=== PATIENT | male | born 1995 | race Two or more races ===

== ENCOUNTER 2016-11-04 23:53 | Inpatient (IN) | payer OTHER ==
[~2016-11-04] VITALS: Ht 266.7 cm; Wt 99.5 kg
[2016-11-05 00:34] LABS: HEMATOCRIT 45.8 % (38.0-50.0); MCH 31.3 PG (29.0-34.0); MCHC 35.8 G/DL (30.0-36.0); MCV 87.4 FL (86-99); MEAN PLAT.VOLUME 10.9 uM^3 (9.0-12.4); PLATELET COUNT 173 K/uL (156-360); RBC DIS.WIDTH-CV 13.4 % (11.8-14.6); RBC DIS.WIDTH-SD 42.9 % (39-53); RED BLOOD COUNT 5.24 M/uL (4.00-5.50); WHITE BLOOD COUNT 9.6 K/uL (4.1-10.2)
[2016-11-05 00:45] LABS: CHLORIDE 99 mEq/L (99-109); POTASSIUM 3.1 mEq/L (3.7-5.4); SODIUM 137 mEq/L (136-147)
[2016-11-05 00:48] LABS: GLUCOSE 101 mg/dL (70-99)
[2016-11-05 00:49] LABS: ANION GAP 21 MEQ/L (2-14)
[2016-11-05 00:50] LABS: TOTAL BILIRUBIN 1.3 mg/dL (0.0-1.0)
[2016-11-05 00:51] LABS: ALKALINE PHOSPHATASE 82 IU/L (3-129); SERUM ETHYL ALCOHOL < 10 mg/dL
[2016-11-05 00:52] LABS: GFR ESTIMATE (CALCULATED) > 59 mL/min/
[2016-11-05 00:53] LABS: UREA NITROGEN (BUN) 7 mg/dL (9-23)
[2016-11-05 01:58] LABS: AMPHETAMINE NEGATIVE (500 ng/mL); BARBITURATES NEGATIVE (200 ng/mL); BENZODIAZEPINES NEGATIVE (150 ng/mL); COCAINE NEGATIVE (150 ng/mL); INTERNAL CONTROLS VALID? YES; METHADONE NEGATIVE (200 ng/mL); METHAMPHETAMINE NEGATIVE (500 ng/mL); OPIATES (MORPHINE) NEGATIVE (100 ng/mL); OXYCODONE NEGATIVE (100 ng/mL); PHENCYCLIDINE NEGATIVE (25 ng/mL); PROPOXYPHENE NEGATIVE (300 ng/mL); THC CANNABINOIDS NEGATIVE (50 ng/mL); TRICYCLIC ANTIDEPRESSANTS NEGATIVE (300 ng/mL)
[2016-11-05 08:15] VITALS: BP 143/94
[2016-11-05 08:33] LABS: MAGNESIUM 1.6 mg/dL (1.3-2.7)
[2016-11-05 10:54] LABS: HBSG INDEX 0.22; HPCA INDEX 0.08
[2016-11-05 10:56] LABS: ANTI-HEPATITIS A VIRUS (IGM) Nonreactive; HAV INDEX 0.16
[2016-11-05 10:57] LABS: ANTI-HEPATITIS B CORE (IGM) Nonreactive; HBC IgM INDEX 0.07
[2016-11-05 16:32] VITALS: BP 154/96
[2016-11-05 19:07] VITALS: BP 144/89
[2016-11-05 23:25] VITALS: BP 126/75
[2016-11-06 06:42] LABS: ALKALINE PHOSPHATASE 61 IU/L (3-129); ANION GAP 10 MEQ/L (2-14); CHLORIDE 101 MEQ/L (99-109); DIRECT BILIRUBIN 0.4 mg/dL (0.0-0.3); GFR ESTIMATE (CALCULATED) > 59 mL/min/; GLUCOSE 86 mg/dL (70-99); SAMPLE HEMOLYSIS CHECK 0; SAMPLE ICTERIC CHECK 0; SAMPLE LIPEMIA CHECK 0; SODIUM 137 MEQ/L (136-147); TOTAL BILIRUBIN 1.4 MG/DL (0.0-1.0); UREA NITROGEN (BUN) 3 mg/dL (9-23)
[2016-11-06 06:47] LABS: INTER. NORMALIZED RATIO 1.1; PROTHROMBIN TIME 10.7 (9.2-11.2)
[2016-11-06 06:50] LABS: POTASSIUM 3.9 MEQ/L (3.7-5.4)
[2016-11-06 07:22] VITALS: BP 133/78
[2016-11-06 07:42] LABS: FERRITIN 318 NG/ML (22-322)
[2016-11-06 11:18] VITALS: BP 144/88
[2016-11-06 16:03] VITALS: BP 122/66
[2016-11-06 19:49] VITALS: BP 135/80
[2016-11-07 00:06] VITALS: BP 145/73
[2016-11-07 00:07] VITALS: BP 139/84
[2016-11-07 03:34] VITALS: BP 119/64
[2016-11-07 06:57] VITALS: BP 133/57
[2016-11-07 08:35] LABS: ALKALINE PHOSPHATASE 64 IU/L (3-129); ANION GAP 9 MEQ/L (2-14); CHLORIDE 103 MEQ/L (99-109); GFR ESTIMATE (CALCULATED) > 59 mL/min/; GLUCOSE 90 mg/dL (70-99); POTASSIUM 3.8 MEQ/L (3.7-5.4); SAMPLE HEMOLYSIS CHECK 0; SAMPLE ICTERIC CHECK 0; SAMPLE LIPEMIA CHECK 0; SODIUM 139 MEQ/L (136-147); TOTAL BILIRUBIN 1.2 MG/DL (0.0-1.0); UREA NITROGEN (BUN) 5 mg/dL (9-23)
[2016-11-07 08:36] LABS: BASOPHIL COUNT 0.1 K/uL (0-0.1); EOSINOPHIL (%) 3.8 % (0-5); EOSINOPHIL COUNT 0.3 K/uL (0-0.3); HEMATOCRIT 42.3 % (38.0-50.0); IMMATURE GRANULOCYTE (%) 1.1 % (0.0-0.7); IMMATURE GRANULOCYTE COUNT 0.1 K/uL; INSTRUMENT ABS NEUTROPHIL CT 3.8 K/uL; LYMPHOCYTE COUNT 2.2 K/uL (1.0-2.8); MCH 30.8 PG (29.0-34.0); MCHC 33.1 G/DL (30.0-36.0); MEAN PLAT.VOLUME 11.8 uM^3 (9.0-12.4); MONOCYTE (%) 15.2 % (3-12); MONOCYTE COUNT 1.2 K/uL (0-0.8); NEUTROPHIL (%) 49.6 % (45-76); NEUTROPHIL COUNT 3.8 K/uL (1.8-6.4); PLATELET COUNT 148 K/uL (156-360); RBC DIS.WIDTH-CV 13.6 % (11.8-14.6); RBC DIS.WIDTH-SD 46.5 % (39-53); RED BLOOD COUNT 4.55 M/uL (4.00-5.50); WHITE BLOOD COUNT 7.6 K/uL (4.1-10.2)
[2016-11-07] MEDS ORDERED: CHLORDIAZEPOXID25 MG PO (10:46)
[2016-11-07] MEDS ORDERED: Thiamine,Vitamin B1 PO ×2 (10:46→10:47)
[2016-11-07] MEDS ORDERED: FOLIC ACID1 MG PO (10:46)
[2016-11-07 19:03] LABS: ALPHA-1-ANTITRYPSIN+ 120 mg/dL (83-199)
[2016-11-07 19:51] LABS: ANTI-SMOOTH MUSCLE (Actin)+ <20 U (<20)
[2016-11-07 23:13] LABS: MITOCHONDRIAL (M2) ANTIBODIES+ <=20.0 U (<=20.0)
== END 2016-11-07 13:57 | disposition home or self-care (01) | DRG 896 ==
LOC: EME 23:53 → EDOF 11-05 06:09 → 5EAST 11-05 06:09
PROVIDERS: Emergency Medicine; Hospitalist; Internal Medicine Gastroenterology
DX: F10.231 Alcohol dependence with withdrawal delirium (principal); G40.89 Other seizures; I10 Essential (primary) hypertension; E87.6 Hypokalemia; K72.00 Acute and subacute hepatic failure without coma; I16.9 Hypertensive crisis, unspecified; R00.0 Tachycardia, unspecified; R16.0 Hepatomegaly, not elsewhere classified; F17.210 Nicotine dependence, cigarettes, uncomplicated; R79.89 Other specified abnormal findings of blood chemistry; Y90.0 Blood alcohol level of less than 20 mg/100 ml
CPT/HCPCS: 70450; 74183; 80048; 80053; 80074; 80076; 82103 90; 82390; 82728; 83516 90; 83735; 85025; 85027; 85610; 86038; 86256 90; 95819; 99281; 99285; G0480; J2060; J3411; J7030

== ENCOUNTER 2017-04-12 23:42 | Emergency (ER) | payer OTHER ==
[~2017-04-12] VITALS: Ht 177.8 cm; Wt 69.1 kg
[~2017-04-12 23:42] MED LIST: CHLORDIAZEPOXID25 MG PO; FOLIC ACID1 MG PO; Thiamine,Vitamin B1 PO
[2017-04-13 00:50] LABS: HEMATOCRIT 46.1 % (38.0-50.0); MCH 28.1 PG (29.0-34.0); MCHC 33.6 G/DL (30.0-36.0); MCV 83.7 FL (86-99); MEAN PLAT.VOLUME 11.1 uM^3 (9.0-12.4); PLATELET COUNT 229 K/uL (156-360); RBC DIS.WIDTH-CV 13.7 % (11.8-14.6); RBC DIS.WIDTH-SD 42.4 % (39-53); RED BLOOD COUNT 5.51 M/uL (4.00-5.50); WHITE BLOOD COUNT 18.9 K/uL (4.1-10.2)
[2017-04-13 01:03] LABS: CHLORIDE 104 mEq/L (99-109); SODIUM 143 mEq/L (136-147)
[2017-04-13 01:05] LABS: GLUCOSE 119 mg/dL (70-99)
[2017-04-13 01:07] LABS: ANION GAP 16 MEQ/L (2-14); TOTAL BILIRUBIN 0.6 mg/dL (0.0-1.0)
[2017-04-13 01:09] LABS: ALKALINE PHOSPHATASE 80 IU/L (3-129); GFR ESTIMATE (CALCULATED) > 59 mL/min/
[2017-04-13 01:10] LABS: UREA NITROGEN (BUN) 5 mg/dL (9-23)
[2017-04-13 01:16] LABS: ADD MIUA? YES; BILIRUBIN NEGATIVE; BLOOD NEGATIVE; COLOR YELLOW ((YELLOW)); GLUCOSE (STRIP) NEGATIVE; KETONES NEGATIVE; LEUKOCYTES NEGATIVE; NITRITE NEGATIVE; PROTEIN (STRIP) 30; SPECIFIC GRAVITY 1.021 (1.000-1.030); UROBILINOGEN 0.2 MG/DL (0.2-1.0)
[2017-04-13 01:57] LABS: BACTERIA 1+ /HPF; EPITHELIAL CELLS RARE /HPF; MUCUS TRACE /LPF; UCUL ADDED? NO; WHITE BLOOD CELLS 0-5 /HPF (0-5)
[2017-04-13 02:15] LABS: LIPASE 21 U/L (1.0-51.0)
[2017-04-13] MEDS ORDERED: ATARAX,VISTARIL25 MG PO (02:34)
[2017-04-13] MEDS ORDERED: ZOFRAN ODT4 MG PO (02:34)
[2017-04-13] MEDS ORDERED: VIBRAMYCIN100 MG PO (02:37)
[2017-04-13 02:46] VITALS: BP 141/91
== END 2017-04-13 02:51 | disposition home or self-care (01) ==
LOC: EME 23:42 → EXP 23:42
DX: L03.115 Cellulitis of right lower limb (principal); R11.2 Nausea with vomiting, unspecified; F10.929 Alcohol use, unspecified with intoxication, unspecified; F17.200 Nicotine dependence, unspecified, uncomplicated; F41.9 Anxiety disorder, unspecified; J45.909 Unspecified asthma, uncomplicated
CPT/HCPCS: 80053; 81003; 83690; 85027; 99281; 99283

== ENCOUNTER 2017-04-19 23:43 | Emergency (ER) | payer OTHER ==
[~2017-04-19] VITALS: Ht 175.3 cm; Wt 70.5 kg
[~2017-04-19 23:43] MED LIST changes: +ATARAX,VISTARIL25 MG PO; +VIBRAMYCIN100 MG PO; +ZOFRAN ODT4 MG PO
[2017-04-20 00:41] LABS: HEMATOCRIT 45.7 % (38.0-50.0); MCH 28.4 PG (29.0-34.0); MCHC 34.8 G/DL (30.0-36.0); MCV 81.8 FL (86-99); MEAN PLAT.VOLUME 11.2 uM^3 (9.0-12.4); PLATELET COUNT 221 K/uL (156-360); RBC DIS.WIDTH-CV 13.2 % (11.8-14.6); RBC DIS.WIDTH-SD 39.3 % (39-53); RED BLOOD COUNT 5.59 M/uL (4.00-5.50); WHITE BLOOD COUNT 19.3 K/uL (4.1-10.2)
[2017-04-20 00:50] LABS: CHLORIDE 104 mEq/L (99-109); POTASSIUM 3.4 mEq/L (3.7-5.4); SODIUM 138 mEq/L (136-147)
[2017-04-20 00:52] LABS: GLUCOSE 127 mg/dL (70-99)
[2017-04-20 00:53] LABS: ANION GAP 12 MEQ/L (2-14)
[2017-04-20 00:54] LABS: TOTAL BILIRUBIN 0.5 mg/dL (0.0-1.0)
[2017-04-20 00:55] LABS: ALKALINE PHOSPHATASE 82 IU/L (3-129)
[2017-04-20 00:56] LABS: GFR ESTIMATE (CALCULATED) > 59 mL/min/
[2017-04-20 00:57] LABS: UREA NITROGEN (BUN) 4 mg/dL (9-23)
[2017-04-20] MEDS ORDERED: ZOFRAN4 MG PO (02:02)
[2017-04-20 02:54] VITALS: BP 127/75
== END 2017-04-20 03:12 | disposition home or self-care (01) ==
LOC: EME 23:43
DX: B34.9 Viral infection, unspecified (principal); R11.2 Nausea with vomiting, unspecified; J45.909 Unspecified asthma, uncomplicated; F17.200 Nicotine dependence, unspecified, uncomplicated
CPT/HCPCS: 74176; 80053; 81003; 85027; 99281; 99284; J2405; J7030